=== PATIENT | male | born 1990 | race Caucasian/White ===

== ENCOUNTER 2020-01-18 14:47 | Emergency (ER) | payer MEDICAID ==
--- NOTE | 2020-01-18 14:50 | NUR ---
CALLED INTO TRIAGE ROOM AND MOTHER STATES PT IS IN CAR, DOES NOT WANT TO BE SEEN AND POSSIBLY HAS MENTAL ISSUES. PT BROUGHT INTO TRIAGED ROOM AND STATES "I DON'T FEEL COMFORTABLE WITH THIS SITUATION AND WILL BE LEAVING" SECURITY AT BEDSIDE FOR PRECAUTIONS. PT THEN EXPLAINED TO MOM THAT HE WANTED TO LEAVE. MOTHER SPOKE WITH PT AND DECIDED TO LEAVE. MOTHER AND PT LEFT WITHOUT BEING TRIAGED.
== END 2020-01-18 14:50 | disposition left against medical advice (07) ==
LOC: SED 14:47
DX: N50.82 Scrotal pain (principal); Z53.21 Procedure and treatment not carried out due to patient leaving prior to being seen by health care provider